=== PATIENT | female | born 1985 | race Hispanic/Latino ===

== ENCOUNTER 2017-04-10 02:52 | Inpatient (IN) | payer OTHER ==
[~2017-04-10] VITALS: Ht 152.4 cm; Wt 124.7 kg
[~2017-04-10 02:52] MED LIST: ALLEGRA ALLERG180 M1 PO; PROTONIX40 M3 PO; VALTREX500 M1 PO
--- NOTE | 2017-04-10 09:42 | Admission Core Measures ---
Admission Lab Results I reviewed the following labs: Laboratory Tests 04/10 924 Urines Urine Test NEGATIVE Admission Meds I reviewed the following Meds: Current Medications Sig/Barrett Start time Last Medication Dose Stop Time Status Admin Clindamycin 900 MG ONCE 04/10 0000 NR (Cleocin) 04/10 2359 Dextrose/Water 50 ML (D5W) Heparin Sodium 5,000 UNIT ONCE 04/10 0000 NR (Porcine) 04/10 2359 Acute Coronary Syndrome Inclusion Criteria ACS Diagnosis No Inpatient Core Measures LDL Reminder: If No, please order W/I first 24hr of stay Congestive Heart Failure Inclusion Criteria CHF Diagnosis No Cerebrovascular accident Inclusion Criteria CVA/TIA Diagnosis No Inpatient Core Measures Bedside Swallow Eval Reminder: If BSE failed, place ST order Antithrombotic Reminder: Order Antithrombotic Medication by end of day 2 Antithrombotic Reminder: Document Reason Antithrombotic Not ordered by end of day 2 AFIB/Flutter Reminder: If Present, add to problem list AFIB/Flutter Reminder: Order Anticoag Medication for pts with AFIB/Flutter Atherosclerosis Reminder: If Present, add to problem list LDL Reminder: If No, please order W/I first 24hr of stay PT Order Reminder: If No, please order Venous thromboembolism Inpatient Core Measures VTE Risk Factors: Obesity, Surgery [facility] prophylaxis d/t No contraindications No VTE Pharm Prophylaxis d/t No contraindications Inclusion Criteria - Per Current guidelines, there needs to be overlap - treatment for the first 5 days of Warfarin therapy. - Parenteral Anticoagulation (IV or SC) needs to be - given along with Warfarin therapy. VTE Diagnosis No VTE Type NONE VTE Confirmed by (Test) NONE Problem List As ranked by this Provider includes Assessment & Plan 1. Morbid obesity 2. S/P laparoscopic sleeve gastrectomy HOME MEDS Home Med List Fexofenadine HCl (Majo Allergy) 180 MG TABLET 1 TAB PO DAILY ALLERGIES ( Reported) Pantoprazole Sodium (Protonix) 40 MG TABLET.DR 1 TAB PO DAILY GERD (Reported) Valacyclovir Hydrochloride (Valtrex) 500 MG TABLET 1 TAB PO DAILY HERPES ( Reported)
--- NOTE | 2017-04-10 09:53 | Patient Discharge Instructions ---
Discharge Instructions General Discharge Information You were seen/treated for: MORBID OBESITY You had these procedures: LAPAROSCOPIC SLEEVE GASTRECTOMY (04/10/17) Watch for these problems: FEVER>101.3, INCREASED PAIN, REDNESS/SWELLING/DRAINAGE, SHORTNESS OF BREATH, CHEST PAINS, DIZZINESS No bath, but you may shower: Yes Other wound care: DRY GUAZE DRESSINGS NEEDED OVER PREVIOUS DRAIN SITE. LEAVE WHITE STERI STRIPS IN PLACE. Diet Continue normal diet: No Recommended Diet: Bariatric Additional DIET Information: WEEKLY BARIATRIC STAGE DIET ADVANCEMENT, TOLERATED, DIRECTED Activity Full Activity/No Limits: No Activity Self Limited: Yes Pounds, do NOT lift more than: 10 Other activity limits: WALK FREQUENTLY Additional ACTIVITY Info: CONTINUE LOVENOX INJECTIONS, DIRECTED Acute Coronary Syndrome Inclusion Criteria At DC or during hospital stay patient has or had the following: ACS DIAGNOSIS No Discharge Core Measures Meds if any: Prescribed or Continued at Discharge Meds if any: NOT Prescribed or Continued at Discharge Congestive Heart Failure Inclusion Criteria At DC or during hospital stay patient has or had the following: CHF DIAGNOSIS No Discharge Core Measures Meds if any: Prescribed or Continued at Discharge Meds if any: NOT Prescribed or Continued at Discharge Cerebrovascular accident Inclusion Criteria At DC or during hospital stay patient has or had the following: CVA/TIA Diagnosis No Discharge Core Measures Meds if any: Prescribed or Continued at Discharge Meds if any: NOT Prescribed or Continued at Discharge Venous thromboembolism Inclusion Criteria VTE Diagnosis No VTE Type NONE VTE Confirmed by (Test) NONE Discharge Core Measures - Per Current guidelines, there needs to be overlap - treatment for the first 5 days of Warfarin therapy. - If discharged on Warfarin prior to 5 days of - overlap therapy, the patient will need to be - assessed for post discharge needs including - *Post discharge parental anticoagulation - *Warfarin and/or parental anticoagulation education - *Follow up date to check INR post discharge At least 5 days overlap therapy as Inpatient No Meds if any: Prescribed or Continued at Discharge Note: Overlap Therapy is Warfarin and Anticoagulant Meds if any: NOT Prescribed or Continued at Discharge
--- NOTE | 2017-04-10 09:56 | Surg Short-stay <48hrs Dis Sum ---
Visit Information Visit Dates Admission Date: 04/10/17 Discharge Date: 04/12/17 Surgical Short Stay DC Summary Admission Diagnosis: MORBID OBESITY Final Diagnosis: SAME, S/P LAP SLEEVE GASTRECTOMY (04/10/17) Procedure(s): LAPAROSCOPIC SLEEVE GASTRECTOMY (04/10/17) Summary/Significant Findings: Electively scheduled laparoscopic sleeve gastrectomy by on 04/10/17, which went routinely. Post-op pain control transitioned from iv to oral medications. MADELIN drain placed in surgery remained during hospitalization, and removed prior to discharge. Lovenox teaching done for continued treatment at home. Tolerating stage 1 bariatric diet prior being discharged to home. Condition at Discharge: stable Discharge Disposition: home or self care Discharge instructions provided to patient/family: Yes Post discharge follow-up plan: pre-printed instructions provided call to schedule one week follow up appointment with , if not previously scheduled
--- NOTE | 2017-04-10 14:38 | Operative Report ---
Operative/Inv Procedure Report Surgery Date: 04/10/17 Name of Procedure: Laparoscopic Sleeve Gastrectomy Pre-Operative Diagnosis: Morbid Obesity BMI 54, GERD Post-Operative Diagnosis: Same Estimated Blood Loss: less than 50ml Surgeon/Foster Care Case Manager: DIONICIO IBRAHIM DO Anesthesia: general endotracheal tube IV Fluids: 300 cc Drains: 10 Fr RUQ MADELIN Drain Specimens: Stomach Complications: None Condition: Stable Operative Indication: This is a 31-year-old female that presented to the office for workup for bariatric surgery. After appropriate workup was completed I discussed with the patient the band, the sleeve, and the gastric bypass. The patient chose to undergo a sleeve gastrectomy. All risks including but not limited to bleeding, infection, leak, stricture, injury to surrounding bowel/esophagus/stomach/liver/ spleen, long-term reflux, DVT/PE, and mortality of 11/999 patients were discussed in detail. The patient understood everything and decided to proceed. Operative/Procedure Note Note: The patient was brought to the operating room and placed on the operating room table in supine position. Venodyne stockings were placed and adequate general endotracheal anesthesia was obtained. The patient was prepped and draped in standard surgical fashion. Began the procedure by making a 2 cm transverse incision supraumbilically and slightly to the left of the midline. Then using a 12 mm clear Visiport and a 10 mm 0 laparoscope, the abdominal cavity was accessed. Great care was taken to go through the anterior rectus sheath, the posterior rectus sheath, and through the peritoneum. Once we entered the peritoneum the abdominal cavity was insufflated to 15 mmHg. Upon initial examination no obvious gross pathology was seen. Accessory trocars were placed, 5 mm in the epigastrium for the Jamie liver retractor. The retractor was inserted and the liver was retracted anteriorly exposing the hiatus, no hiatal hernia was seen. 5 mm ports were placed in the right and left upper quadrant, a 5 mm left lateral port, and a 15 mm right lateral port. Began the procedure by mobilizing the greater curvature of the stomach approximately 7 cm from the pylorus. Once the retrogastric space was reached the whole greater curvature was mobilized maintaining hemostasis using Harmonic scalpel. Full hiatal dissection was performed, no hiatal hernia was seen. Posterior adhesions were taken down using Harmonic scalpel as well. Once the stomach was adequately mobilized a 38 Amharic bougie was inserted and placed along the lesser curvature of the stomach. Once the bougie was in the appropriate position will began creating our sleeve, two 60 mm black staple loads with seamguard followed by two 60 mm purple staple loads with seamguard as well and finished with a 45 mm plain purple load. Great care was taken to leave ample room at the incisura angularis , to prevent any twisting or kinking of the sleeve, to stay lateral to the esophagogastric fat pad, and to do a full fundal excision. At the completion of the staple line the staple line was examined, it appeared intact and some bleeding was noted and controlled using endoclips. The bougie was removed, the sleeve was lying nicely without any twisting or kinking. The resected stomach was removed through the right lateral port site. The port and the left upper quadrant were irrigated until clear. A 10 Amharic MADELIN drain was placed through the right upper quadrant incision under the liver and over the spleen. All ports were removed under direct visualization no obvious bleeding was noted. The 15 mm port site fascia was closed using 0 Vicryl suture. The skin was closed using 4-0 Monocryl. Steri-Strips and dressings were placed. The patient was successfully extubated and transferred to the recovery room in stable condition. The patient tolerated the procedure well with no complications. Findings: No hiatal hernia, 38 Fr Bougie CC: MIR HUBER
[2017-04-10 17:40] VITALS: BP 124/70
--- NOTE | 2017-04-10 17:50 | PN- Bariatrics ---
Subjective Subjective: POST-OP NOTE: Denies pain at this time. "I'm hungry". No nausea. Out of bed to bathroom. Slightly dizzy. No shortness of breath. No chest pains. Voided without difficulty. Objective Vital Signs and I&Os Vital Signs Date Time Temp Pulse Resp B/P B/P Pulse O2 O2 Flow FiO2 Mean Ox Delivery Rate 04/10 1740 98.4 76 20 124/70 96 Room Air Physical Exam: General - alert & oriented x 3. comfortable. no acute distress. Lungs - clear bilaterally. no w/r/r. Cardiac - s1s2. reg. Abdomen - soft. dressings c/d/i. MADELIN drain with small amount of bloody drainage. Extremities - warm bilaterally. no c/c/e. calves soft and nontender b/l. athrombics active. Current Medications: Current Medications Sig/Barrett Start time Last Medication Dose Route Stop Time Status Admin Acetaminophen 1,000 MG Q6 04/10 1800 AC N/A 1 UNIT IV 04/11 1214 Acetaminophen/ 15 ML Q6P PRN 04/10 0945 AC Hydrocodone Bitart PO Clindamycin 900 MG IQ8 04/10 2000 AC Dextrose/Water 50 ML IV 04/11 0844 Clindamycin 900 MG ONCE 04/10 0000 NR Dextrose/Water 50 ML IV 04/10 2359 Dextrose/Sodium 1,000 ML Q8H 04/10 1000 AC Chloride IV Heparin Sodium 5,000 UNIT Q8 04/10 2200 AC (Porcine) SC Heparin Sodium 0 .STK-MED ONE 04/10 1034 DC (Porcine) .ROUTE Heparin Sodium 5,000 UNIT ONCE 04/10 0000 NR (Porcine) SC 04/10 2359 Hydromorphone HCl 1 MG Q4P PRN 04/10 0945 AC IV Loratadine 10 MG DAILY 04/11 1000 AC PO Ondansetron HCl 4 MG Q6P PRN 04/10 0945 AC IV Pantoprazole Sodium 40 MG DAILY 04/11 1000 AC IV Simethicone 40 MG Q6P PRN 04/10 0945 AC PO Valacyclovir HCl 500 MG DAILY 04/11 1000 AC PO Results Last 48 Hours of Labs: Laboratory Tests 04/10 0924 Urines Urine Test NEGATIVE Assessment/Plan Assessment/Plan This 31 year old female with pmh morbid obesity (bmi 54) and GERD, is POD#0 s/p lap sleeve gastrectomy stage 1 bariatric diet as tolerated npo after midnight for possible upper gi study in am adin-operative clinda x 2 f/u am labs hep sc - dvt ppx protonix - gi ppx oob/ambulation will d/w Core Measures/Miscellaneous Venous Thromboembolism VTE Risk Factors: Age > 40, Obesity, Smoking VTE Contraindications: No Contraindications VTE Diagnosis: No VTE Type: NONE VTE Confirmed by (Test): NONE Beta Christina Is Beta Christina a Home Med? No Antibiotics Is Patient on Antibiotics? Yes If Yes: prophylaxis
--- NOTE | 2017-04-10 18:00 | NUR ---
NURSING NOTE: 1740PM PT ARRIVED TO FLOOR VIA STRETCHER WITH DISTRIBUTION FROM PACU S/P LAP BARIATRIC SLEEVE GASTRECTOMY. PT AWAKE, A/OX3, VITALS OBTAINED AND STABLE, ROOM AIR; PT DENIES PAIN/NAUSEA OR DIDSTRESS, PT AMBULATED WITH SUPERVISION TO BATHROOM, VOIDED CLEAR YELLOW URINE IN HAT. IVF PER MD ORDER. PT DIFFICULT IV STICK PER ANESTHESIA; 3 IVS INTACT. STAGE 1 BARIATRIC DIET EXPLAINED, DIET LOG GIVEN, PT VERB UNDERSTANDING, DSGS TO ABD C/D/I, MADELIN DRAIN INTACT, ALPS IN USE, PT SETTLED INTO BED. DENIES PAIN, NEEDS IN REACH, SFATEY MAINTAINED. REPORT GIVEN TO NEXT SHIFT RN. RELETEX BRACELET ON, WARM PACK GIVEN FOR BACK DISCOMFORT FROM BED PER PT. INSENTIVE SPIR GIVEN, LOVENOX TEACHING PACKET REVIEWED WITH PT,LOVENOX TEACHING TO CONTINUE EACH SHIFT.INFO PACKET GIVEN, HOURLY ROUNDING EXPLAINED, ALL NEEDS IN REACH.
--- NOTE | 2017-04-10 18:45 | NUR ---
NURSING NOTE: PT C/O NAUSEA AFTER STARTING A FEW SIPS OF STAGE 1 BARIATRIC DIET, ZOFRAN GIVEN. CHANDANA GARCIA AWARE.
[2017-04-10 21:20] VITALS: BP 130/80
[2017-04-11 01:43] VITALS: BP 132/86
[2017-04-11 06:40] VITALS: BP 130/84
--- NOTE | 2017-04-11 07:20 | PN- Bariatrics ---
See Addendum Subjective Subjective: The patient was seen this morning postoperatively day #1. She reports that her pain is under adequate control and she is without nausea this morning. She has no other complaints the current time and denies any chest pain or difficulty breathing. Objective Vital Signs and I&Os Vital Signs Date Time Temp Pulse Resp B/P B/P Pulse O2 O2 Flow FiO2 Mean Ox Delivery Rate / 0640 98.5 69 20 130/84 97 06/08 0600 99 Room Air 06/08 0210 74 95 06/08 0143 98.1 60 20 132/86 96 Room Air 06/08 0000 CPAP 06/07 2200 CPAP 06/07 2120 97.7 65 20 130/80 99 Room Air /2004 Room Air / 2000 98 Room Air / 1740 96 Room Air / 1740 98.4 76 20 124/70 96 Room Air Intake & Output / 0800 06/08 0000 06/07 1600 06/07 0800 06/07 0000 06/06 1600 Intake Total 1250 465 Output Total 1140 1350 Balance 110 -885 Intake, IV 1250 375 Intake, Oral 90 Output, 40 Drainage Output, Urine 1100 1350 Patient 275 lb Weight Weight Reported by Patient Measurement Method Physical Exam: Gen.: Alert and in no obvious distress Skin: Warm and dry Abdomen: Soft, obese, appropriate incisional tenderness, bowel sounds positive. Port sites blood-tinged otherwise intact. MADELIN 1 holding suction with serosanguineous drainage and bulb. Extremities: Bilateral was warm without calf tenderness or significant edema. Assessment/Plan Assessment/Plan Assessment: 31-year-old female status post laparoscopic sleeve gastrectomy postoperative day 1. The patient is progressing as expected and her pain is under adequate control. Plan: Cancel upper GI and start a bariatric stage I diet Decrease IV fluids Follow-up morning laboratory studies GI and DVT prophylaxis Out of bed and ambulate Incentive spirometry Lovenox education Keep MADELIN is self suction Strict I's and O's Core Measures/Miscellaneous Venous Thromboembolism VTE Risk Factors: Age > 40, Obesity, Smoking VTE Contraindications: No Contraindications VTE Diagnosis: No VTE Type: NONE VTE Confirmed by (Test): NONE Beta Christina Is Beta Christina a Home Med? No Antibiotics Is Patient on Antibiotics? No
[2017-04-11 09:07] LABS: ABSOLUTE BASOPHIL COUNT 0 /CUMM (0.0-0.2); ABSOLUTE EOSINOPHIL COUNT 0 /CUMM (0.0-0.7); ABSOLUTE GRANULOCYTE CT 10.8 /CUMM (1.4-6.5); ABSOLUTE LYMPH COUNT 1.1 /CUMM (1.2-3.4); BASOPHIL % 0.3 % (0.0-2.0); EOSINOPHIL % 0 % (0-5); GRANULOCYTE % 83.5 % (42.2-75.2); HEMATOCRIT 42.9 % (37-47); MEAN CORPUSCULAR HGB 25.3 PG (27.0-31.0); MEAN CORPUSCULAR HGB CONC 31.7 G/DL (33.0-37.0); MEAN CORPUSCULAR VOLUME 79.7 FL (81.0-99.0); MEAN PLATELET VOLUME 9.6 FL (7.4-10.4); PLATELET COUNT 265 /CUMM (130-400); RBC DISTRIBUTION WIDTH 15.6 % (11.5-14.5); RED BLOOD CELL CT 5.39 /CUMM (4.20-5.40); WHITE BLOOD CELL COUNT 12.9 /CUMM (4.8-10.8)
[2017-04-11 14:19] VITALS: BP 130/80
--- NOTE | 2017-04-11 15:01 | NUR ---
Visited with pt and gave a copy of diet education which pt took, although she said she already had one. Questions answered. Has RD phone number for further questions and encouraged to get referal for RD appointment post-op.
[2017-04-11 21:42] VITALS: BP 132/76
--- NOTE | 2017-04-11 22:41 | NUR ---
ALERT AND ORIENTED X 3. ON ROOM AIR. DENIES SHORTNESS OF BREATH. LUNGS CLEAR VITAL SIGNS STABLE. DENIES CHEST PAIN. + PULSES. DENIES NUMBNESS/TINGLING +1 BLE EDEMA. DSGS TO ABD ARE C/D/I. 10ML SS FLUID DRAINED FROM MADELIN. PATIENT AMBULATING. MEDICATION GIVEN FOR PAIN
[2017-04-12 06:11] VITALS: BP 128/78
--- NOTE | 2017-04-12 07:42 | PN- Bariatrics ---
Subjective Subjective: Reports pain is better controlled. Tolerating stage 1 diet. No nausea. Passing flatus. No bm yet. Voiding well. Ambulating better. No dizziness. No shortness of breath. No chest pains. Anticipates discharge later this afternoon when her family is available to pick her up. Objective Vital Signs and I&Os Vital Signs Date Time Temp Pulse Resp B/P B/P Pulse O2 O2 Flow FiO2 Mean Ox Delivery Rate 04/12 611 98.0 88 22 128/78 95 Room Air 04/12 0600 Room Air 04/12 0015 81 94 / 2200 97 Room Air / 2142 98.2 75 24 132/76 97 Room Air / 1600 97 Room Air / 1419 98.2 61 20 130/80 97 Room Air / 0800 96 Room Air Intake & Output 04/12 0800 / 0000 /08 1600 / 0800 / 0000 / 1600 Intake Total 800 867 702 7981 465 Output Total 20 632 808 8658 1350 Balance 780 340 30 110 -885 Intake, IV 600 720 228 5370 375 Intake, Oral 200 250 250 90 Output, 20 10 20 40 Drainage Output, Urine 569 451 1618 1350 Patient 275 lb Weight Weight Reported by Patient Measurement Method Physical Exam: General - alert & oriented x 3. comfortable. no acute distress. Lungs - clear bilaterally. no w/r/r. Cardiac - s1s2. reg. Abdomen - soft. dressings c/d/i. MADELIN drain with serosang drainage. Extremities - warm bilaterally. no c/c/e. calves soft and nontender b/l. Current Medications: Current Medications Sig/Barrett Start time Last Medication Dose Route Stop Time Status Admin Acetaminophen 1,000 MG Q6 04/10 1800 DC 04/11 N/A 1 UNIT IV 04/11 1214 1103 Acetaminophen/ 15 ML Q6P PRN 04/10 0945 04/11 Hydrocodone Bitart PO 1114 Dextrose/Sodium 1,000 ML Q13H 04/11 0800 AC 04/12 Chloride IV 0008 Dextrose/Sodium 1,000 ML Q8H / 1000 DC 04/11 Chloride IV 0215 Enoxaparin Sodium 40 MG DAILY 04/11 1000 AC 04/11 SC 1104 Hydromorphone HCl 1 MG Q4P PRN 04/10 0945 AC 04/12 IV 0412 Loratadine 10 MG DAILY 04/11 1000 AC 04/11 PO 1104 Ondansetron HCl 4 MG Q6P PRN 04/10 0945 AC 04/11 IV 0021 Pantoprazole Sodium 40 MG DAILY 04/11 1000 AC 04/11 IV 1104 Patient Medication 1 ED .STK-MED ONE 04/11 1405 OH Teaching ED 04/11 1406 Simethicone 40 MG Q6P PRN 04/10 0945 AC 04/11 PO 1621 Valacyclovir HCl 500 MG DAILY 04/11 1000 AC PO Results Last 48 Hours of Labs: Laboratory Tests 04/11 04/10 0734 0924 Chemistry Sodium (137 - 145 mmol/L) 138 Potassium (3.5 - 5.1 mmol/L) 4.5 Chloride (98 - 107 mmol/L) 104 Carbon Dioxide (22 - 30 mmol/L) 24 Anion Gap (5 - 16) 10 BUN (7 - 17 mg/dL) 3 L Creatinine (0.5 - 1.0 mg/dL) 0.6 Estimated GFR (>60 ml/min) > 60 BUN/Creatinine Ratio (7 - 25 %) 5.0 L Glucose (65 - 99 mg/dL) 114 H Magnesium (1.6 - 2.3 mg/dL) 1.9 Hematology CBC w Diff NO MAN DIFF REQ WBC (4.8 - 10.8 /CUMM) 12.9 H RBC (4.20 - 5.40 /CUMM) 5.39 Hgb (12.0 - 16.0 G/DL) 13.6 Hct (37 - 47 %) 42.9 MCV (81.0 - 99.0 FL) 79.7 L MCH (27.0 - 31.0 PG) 25.3 L RDW (11.5 - 14.5 %) 15.6 H Plt Count (130 - 400 /CUMM) 265 MPV (7.4 - 10.4 FL) 9.6 Gran % (42.2 - 75.2 %) 83.5 H Lymphocytes % (20.5 - 51.1 %) 8.4 L Monocytes % (1.7 - 9.3 %) 7.8 Eosinophils % (0 - 5 %) 0 Basophils % (0.0 - 2.0 %) 0.3 Absolute Granulocytes (1.4 - 6.5 /CUMM) 10.8 H Absolute Lymphocytes (1.2 - 3.4 /CUMM) 1.1 L Absolute Monocytes (0.10 - 0.60 /CUMM) 1.0 H Absolute Eosinophils (0.0 - 0.7 /CUMM) 0 Absolute Basophils (0.0 - 0.2 /CUMM) 0 PUBS MCHC (33.0 - 37.0 G/DL) 31.7 L Urines Urine Test NEGATIVE Assessment/Plan Assessment/Plan This 31-year-old female is POD#2 s/p lap sleeve gastrectomy tolerating stage 1 bariatric diet pain controlled lovenox teaching MADELIN drain removed lovenox - dvt ppx protonix - gi ppx d/c home today will d/w Core Measures/Miscellaneous Venous Thromboembolism VTE Risk Factors: Age > 40, Obesity, Smoking VTE Contraindications: No Contraindications VTE Diagnosis: No VTE Type: NONE VTE Confirmed by (Test): NONE Beta Christina Is Beta Christina a Home Med? No Antibiotics Is Patient on Antibiotics? No
[2017-04-12] MEDS ORDERED: HYCET 7.5 MG-3473 ML PO (07:44)
[2017-04-12] MEDS ORDERED: LOVENOX40 MG/0.1 SC (07:44)
[2017-04-12 14:49] VITALS: BP 126/72
--- NOTE | 2017-04-12 16:06 | NUR ---
NURSING NOTE: ASSUMED CARE OF PT AT 1400. PT A&O, OOB INDEPENDNETLY. AMBULATING IN ROOM/HALLWAY. DSG SITES TO ABD CDI. DISCHARGE INSTRUCTIONS GIVEN WITH VERBAL UNDERSTANDING. PT TO CHIEF MAINTENANCE SUPERVISOR PRECRIPTIONS AT [facility]. PT ABLE TO VERBALIZE GIVING SELF LOVENOX INJECTIONS.
== END 2017-04-12 16:15 | DRG 403 ==
LOC: SDA 02:52 → 2NB 02:52 → SDA 07:00 → ENRESERV 16:57 → ENTRNSPT 17:08 → 2NB 17:40 → CMPTRNSPT 17:53 → ENPENDDIS 04-12 09:57 → 2NB 04-12 16:15
PROVIDERS: Physician Assistant; ADMIT Surgery
PROC: 0DB64Z3 Excision of Stomach, Percutaneous Endoscopic Approach, Vertical (ICD-10-PCS; principal; 2017-04-10)
PROC: 3E0T3CZ (ICD-10-PCS; 2017-04-10)
DX: E66.01 Morbid (severe) obesity due to excess calories (principal); Z68.43 Body mass index [BMI] 50.0-59.9, adult; G47.33 Obstructive sleep apnea (adult) (pediatric); R73.03 Prediabetes; K21.9 Gastro-esophageal reflux disease without esophagitis
CPT/HCPCS: 2NSBP; 36415; 81025; 82436; 88307; J0131; J1100; J1644; J1650; J2405; J3490; J7042

== ENCOUNTER 2017-11-26 19:05 | Emergency (ER) | payer OTHER ==
[~2017-11-26] VITALS: Ht 154.9 cm; Wt 108.9 kg
[~2017-11-26 19:05] MED LIST changes: +HYCET 7.5 MG-3473 ML PO; +LOVENOX40 MG/0.1 SC
[2017-11-26 19:30] VITALS: BP 121/82
== END 2017-11-26 20:00 | disposition admitted as inpatient to this hospital (09) ==
LOC: ERH 19:05
DX: R51 Headache (principal); M54.2 Cervicalgia